=== PATIENT | male | born 1965 | race Caucasian/White ===

== ENCOUNTER 2025-06-11 18:14 | Emergency (ER) | payer OTHER, SELFPAY ==
--- NOTE | ~2025-06-11 | XR_ITS ---
EXAMINATION: XR chest 2V DATE: 06/11/2025 18:37 INDICATION: Chest pain TECHNIQUE: Frontal and lateral views of the chest were obtained. COMPARISON: None. FINDINGS: Heart size is normal. Lungs are clear of acute processes. IMPRESSION: 1. No acute findings. Reviewed, dictated and finalized at location [facility] [employer] IMPRESSION: 1. No acute findings.
--- NOTE | 2025-06-11 18:16 | ECG_ITS ---
Test Date: 2025-06-11 18:19:50 Measurements Intervals [place] Rate: 77 P: 44 IN: 147 QRS: 26 QRSD: 93 T: 33 QT: 369 QTc: 420 Interpretive Statements SINUS RHYTHM No previous ECG available for comparison Electronically Signed On 06-11-2025 21:42:43 [employer]OOKKEEPING MACHINE OPERATOR by Bipin Carbajal D.O
[2025-06-11 18:22] VITALS: BP 130/71; PULSE 79; RESP 17; TEMP 36.5; O2SAT 99
[2025-06-11 18:31] LABS: Hematocrit 39.4 % (42.0-52.0); Hemoglobin 12.4 g/dL (14.0-18.0); Immature Granulocyte Percent A 0.3 % (0-0.5); Lymphocytes Absolute Auto 1.57 K/mm3 (0.9-3.2); Mean Corpuscular HGB Conc 31.5 g/dl (32-36); Mean Corpuscular Hemoglobin 27.9 pg (26-34); Mean Corpuscular Volume 88.5 fl (80-100); Nucleated Red Blood Cells Absolute Auto 0.000 K/mm3 (0.0-0.012); Nucleated Red Blood Cells Perc 0.0 % (0.0-0.2); Platelet Count Result 252 k/mm3 (150-375); Red Blood Count 4.45 M/mm3 (4.6-6.20); White Blood Count 6.6 K/mm3 (4.5-10.0)
[2025-06-11 18:42] LABS: Alanine Aminotransferase 34 U/L (6-50); Albumin Level 4.6 g/dL (3.5-5.1); Alkaline Phosphatase 86 U/L (38-126); Anion Gap 8 mmol/L (4-12); Aspartate Amino Transferase 40 U/L (17-59); Bilirubin,Total 0.6 mg/dL (0.2-1.3); Blood Urea Nitrogen 11 mg/dL (9-20); Calcium 8.7 mg/dL (8.4-10.2); Carbon Dioxide 26 mmol/L (22-30); Chloride 101 mmol/L (98-107); Estimated CRCL calculation 78 ml/min; Estimated Glomerular Filt Rate > 60; Glucose 151 mg/dL (65-110); Lipase 123 U/L (23-300); Potassium 4.0 mmol/L (3.4-5.0); Sodium 135 mmol/L (137-145); Total Protein 8.2 g/dL (6.3-8.2)
[2025-06-11 18:45] LABS: INR 1.0; Prothrombin Time 13.1 Seconds (11.1-14.7)
[2025-06-11 18:46] LABS: Partial Thromboplastin Time 41.7 Seconds (22.3-36.8)
[2025-06-11 18:54] LABS: Troponin I < 0.012 ng/mL (0.000-0.034)
--- NOTE | 2025-06-11 21:37 | ECG_ITS ---
Test Date: 2025-06-11 21:41:23 Measurements Intervals [place] Rate: 75 P: 35 SD: 155 QRS: 27 QRSD: 78 T: 30 QT: 384 QTc: 430 Interpretive Statements SINUS RHYTHM Compared to ECG 06/11/2025 18:19:50 No significant changes Electronically Signed On 06-11-2025 21:44:11 FAT PRESSROOM WORKER by Bipin Carbajal D.O
[2025-06-11 22:08] LABS: Troponin I < 0.012 ng/mL (0.000-0.034)
--- NOTE | 2025-06-11 22:24 | ED.CHESTPAIN ---
HPI - Chest Pain General Chief Complaint: Chest Pain Stated Complaint: CP Time Seen by Provider: 06/11/25 21:45 History of Present Illness HPI narrative: Patient is a 59-year-old male who presents to the ER with chest pain that started approximately 1 week ago. He reports he recently changed medications to treat his autoimmune disorders. Patient reports he believes his pain is related to these new medication changes. He reports the pain is intermittent and increases when he pushes on his pectoral muscle or with certain movements. Patient denies any shortness of breath, recent fevers, palpitations or urinary symptoms. Related Data Allergies Allergy/AdvReac Type Severity Reaction Status Date / Time No Known Allergies Allergy Verified 06/11/25 18:27 Review of Systems Review of Systems: All systems reviewed & are unremarkable except as noted in HPI and below Exam Narrative: GENERAL: Well appearing, well-nourished, non-toxic, in no acute distress. HEAD: Normocephalic, atraumatic. NECK: Supple. No adenopathy, no masses. RESPIRATORY: Airway patent, respirations nonlabored. Clear to auscultation bilaterally, no rales, rhonchi, wheezing. CARDIOVASCULAR: Regular rate and rhythm without murmurs, rubs, or gallops. Peripheral pulses 2+ and equal bilaterally. Pain is reproducible with palpation to left pectoralis chest muscle ABDOMINAL: Soft, nontender, nondistended, no hepatosplenomegaly. Normoactive BS. MUSCULOSKELETAL: Moves all extremities. Strength/ROM intact without gross deformities. SKIN: Warm, dry, normal color. No rashes. NEURO: A&O X3. Speech clear. Cranial nerves II-XII intact. No ataxic movements. PSYCHIATRIC: Appropriate mood and affect. Normal interaction. Course Vital Signs Vital signs: Vital Signs Temperature 36.5 C 06/11/25 18:22 Pulse Rate 79 06/11/25 18:22 Respiratory Rate 17 06/11/25 18:22 Blood Pressure 130/71 06/11/25 18:22 Pulse Oximetry 99 06/11/25 18:22 Oxygen Delivery Room Air 06/11/25 18:22 Temperature 36.5 C 06/11/25 18:22 Pulse Rate 79 06/11/25 18:22 Respiratory Rate 17 06/11/25 18:22 Blood Pressure 130/71 06/11/25 18:22 Pulse Oximetry 99 06/11/25 18:22 Oxygen Delivery Room Air 06/11/25 18:22 MDM - Chest Pain MDM Narrative Medical decision making narrative: Patient is a 59-year-old male who presents to the ER with chest pain that started approximately 1 week ago. He reports he recently changed medications to treat his autoimmune disorders. Patient reports he believes his pain is related to these new medication changes. He reports the pain is intermittent and increases when he pushes on his pectoral muscle or with certain movements. Patient denies any shortness of breath, recent fevers, palpitations or urinary symptoms. Labs Ordered: CBC, CMP, PTT, INR, troponin, lipase Imaging Ordered: Chest x-ray Medications Ordered: Zanaflex 4 mg p.o., Toradol 15 mg IV Results: Patient's chest x-ray indicates No acute findings. Diagnosis: Musculoskeletal strain Risks: HEART score: low risk HEART Score for Major Cardiac Events from [employer] on 06/11/2025 All calculations should be rechecked by clinician prior to use RESULT SUMMARY: 3 points Low Score (0-3 points) Risk of MACE of 0.9-1.7%. INPUTS: History ?> 1 = Moderately suspicious EKG ?> 0 = Normal Age ?> 1 = 45-64 Risk factors ?> 1 = 1-2 risk factors Initial troponin ?> 0 = <Normal limit Patient Education/Shared MDM: Results of lab work and imaging shared with patient. He endorses improvement of symptoms following medication administration. Patient strongly advised to follow-up with his PCP as soon as possible for further evaluation. He will be discharged home with a prescription for muscle relaxants. Patient can take Tylenol and/or ibuprofen for pain control. Strict return precautions provided. Patient verbalized understanding and is in agreement with plan. Vital signs stable at time of discharge. All questions answered. Lab Data Attestation: I reviewed the patient's lab results. 06/11/25 18:06/11/25 18:25 Labs: Lab Results 06/11/25 06/11/25 Range/Units 18: 21:40 WBC 6.6 (4.5-10.0) K/mm3 RBC 4.45 L (4.6-6.20) M/mm3 Hgb 12.4 L (14.0-18.0) g/dL Hct 39.4 L (42.0-52.0) % MCV 88.5 (80-100) fl MCH 27.9 (26-34) pg MCHC 31.5 L (32-36) g/dl RDW 15.3 H (11.5-14.5) % Plt Count 252 (150-375) k/mm3 MPV 9.5 (7.4-10.4) fl Immature Gran % (Auto) 0.3 (0-0.5) % Neut % (Auto) 63.3 (45.5-73.1) % Lymph % (Auto) 23.8 (18.3-44.2) % [place] % (Auto) 11.4 H (2.6-8.5) % Eos % (Auto) 0.9 (0-4.4) % Baso % (Auto) 0.3 (0.2-1.2) % Lymph # (Auto) 1.57 (0.9-3.2) K/mm3 [place] # (Auto) 0.8 H (0.1-0.6) K/mm3 Eos # (Auto) 0.1 (0-0.3) K/mm3 Baso # (Auto) 0.0 (0.0-0.1) K/mm3 Abs Immat Gran (auto) 0.02 (0.00-0.031) K/mm3 Absolute Neuts (auto) 4.2 (1.3-6.7) K/mm3 Absolute Nucleated RBC 0.000 (0.0-0.012) K/mm3 Nucleated RBC % 0.0 (0.0-0.2) % PT 13.1 (11.1-14.7) Seconds INR 1.0 APTT 41.7 H (22.3-36.8) Seconds Sodium 135 L (137-145) mmol/L Potassium 4.0 (3.4-5.0) mmol/L Chloride 101 (98-107) mmol/L Carbon Dioxide 26 (22-30) mmol/L Anion Gap 8 (4-12) mmol/L BUN 11 (9-20) mg/dL Creatinine 0.96 (0.7-1.3) mg/dL Estim Creat Clear Calc 78 ml/min Estimated GFR > 60 (59 - ) Glucose 151 H (65-110) mg/dL Calcium 8.7 (8.4-10.2) mg/dL Total Bilirubin 0.6 (0.2-1.3) mg/dL AST 40 (17-59) U/L ALT 34 (6-50) U/L Alkaline Phosphatase 86 (38-126) U/L Troponin I < 0.012 < 0.012 (0.000-0.034) ng/mL Total Protein 8.2 (6.3-8.2) g/dL Albumin 4.6 (3.5-5.1) g/dL Lipase 123 (23-300) U/L Imaging Data Attestation: I personally reviewed and interpreted this imaging study as follows: Radiologist's impression: Impressions Chest X-Ray 06/11/25 18:38 IMPRESSION: 1. No acute findings. Discharge Plan Discharge Clinical Impression: Atypical chest pain, Pectoralis muscle strain Patient Disposition: Home Condition: Stable Instructions: Antibiotic Form, Musculoskeletal Pain (ED) Additional Instructions: Please return to the ER with any worsening symptoms. Follow-up with primary care provider as soon as possible for further evaluation. Take all medications as prescribed, including regularly scheduled medications. You may take Tylenol and/or ibuprofen for pain control, along with muscle relaxants. Patient Language: Frisian Prescriptions: New tizanidine 4 mg capsule 4 mg PO Q8H PRN (Reason: muscle spasticity) Qty: 30 0RF Follow-up/Referrals: UNKNOWN,DOCTOR [Non-Staff] Time of Disposition: 23:16
[2025-06-11] MEDS: KETOROLAC 15 MG/ML VIAL (*BKC) IV PUSH (22:52)
[2025-06-11] MEDS: TIZANIDINE HCL 4 MG TABLET PO (22:52)
[2025-06-11 23:19] VITALS: BP 126/66; PULSE 71; RESP 18; O2SAT 96
--- OUTSIDE RECORDS SUMMARY | 2025-06-12 01:11 | XMS_ITS | Clinical Summary ---
Author Organization [facility] Address [address] [place] [address] Care Team Providers Care Lapel Baster Name Role Phone Pennie High MD Primary Care Provider [phone] Allergies Active Allergy Reactions Criticality Noted Date Comments Shellfish Containing Products Other (See comments) Low 11/23/2022 Throat tingling Medications dicyclomine (BENTYL) 10 mg capsuleIndicati ons:Crohn's Take 1 capsule (10 mg total) by mouth 3 (three) times a day Active ARIPiprazole (ABILIFY) 20 mg tabletIndicatio ns:mood Take 1 tablet (20 mg total) by mouth every morning Active Accu-Chek Guide test strips strip 3 Active Accu-Chek Guide Me Glucose Mtr misc 3 Active folic acid (FOLVITE) 1 mg tabletIndicatio ns:supplement Take 1 tablet (1 mg total) by mouth every morning 3 Active calcium carbonate-vitam in D3 1,250mg (500mg elemental) - 5 mcg (200 units) per tabletIndicatio ns:Prevention of Vitamin D Deficiency Take 1 tablet by mouth every morning 3 Active CHOLECALCIFEROL , VITAMIN D3, ORALIndications :Vitamin D Deficiency Take 1 tablet by mouth every morning 3 Active empagliflozin-m etformin 12.5-1,000 mg tablet, IR & ER, biphasic 24hrIndications :type 2 diabetes mellitus Take 2 tablets by mouth every morning 3 Active escitalopram (LEXAPRO) 20 mg tabletIndicatio ns:Anxiety with Depression Take 1 tablet (20 mg total) by mouth every morning 3 Active Accu-Chek Softclix Lancets lancets 3 Active losartan (COZAAR) 50 mg tabletIndicatio ns:hypertension Take 0.5 tablets (25 mg total) by mouth every morning [address] (PROTONIX) 40 mg EC tabletIndicatio ns:Treatment of Non-Bleeding Gastric Disorder Take 1 tablet (40 mg total) by mouth every morning 3 Active sertraline (ZOLOFT) 50 mg tabletIndicatio ns:Anxiety with Depression Take 0.5 tablets (25 mg total) by mouth every morning 6 Active sulfaSALAzine (AZULFIDINE) 500 mg tabletIndicatio ns:Crohn's Disease Take 1 tablet (500 mg total) by mouth 3 (three) times a day 3 Active tadalafiL (CIALIS) 20 mg tablet Take 1 tablet (20 mg total) by mouth as needed for erectile dysfunction 3 Active Synthroid 150 mcg tabletIndicatio ns:hypothyroidi sm Take 1 tablet (150 mcg total) by mouth every morning 3 Active white petrolatum-mine ral oiL ointment Apply 1 Application to left eye nightly 3.5 g 11 4 Active methotrexate 2.5 mg tablet Take 6 tablets (15 mg total) by mouth 4 Active BD Ultra-Fine Mini Pen Needle 31 gauge x 3/16 needle 4 Active pioglitazone (ACTOS) 30 mg tablet 4 Active QUEtiapine (SEROquel) 100 mg tablet Take 0.5 tablets (50 mg total) by mouth 4 Active traZODone (DESYREL) 100 mg tablet Take 2 tablets (200 mg total) by mouth 4 Active atorvastatin (LIPITOR) 80 mg tablet 4 Active glipiZIDE (GLUCOTROL) 10 mg tablet 4 Active predniSONE (DELTASONE) 5 mg tabletIndicatio ns:Panuveitis of right eye Take 2 tablets (10 mg) by mouth daily 180 tablet 1 4 Active sildenafiL (VIAGRA) 100 mg tablet Take 1 tablet (100 mg total) by mouth 4 Active tofacitinib (XELJANZ) 10 mg tablet Take 1 tablet (10 mg total) by mouth 5 Active insulin glargine 100 unit/mL (3 mL) pen for injection Inject under the skin 4 Active difluprednate (DUREZOL) 0.05 % dropsIndication s:Chronic anterior uveitis of left eye Administer 1 drop into the right eye 6 (six) times a day Use daily in the left eye 5 Active Active Problems Problem Noted Date Diagnosed Date Irritable bowel syndrome, unspecified 08/09/2024 Keratopathy 06/04/2024 Assessment & Plan (08/09/2024 11:56 AM CANDY MAKER HELPER): His tearing is due to the ocular surface. Recommended ointment qHS. Assessment & Plan (06/04/2024 9:42 PM CANDY MAKER HELPER): His tearing is due to the ocular surface. Recommended ointment qHS. Chronic anterior uveitis of left eye 09/12/2023 Overview (09/12/2023): See overview for panuveitis of right eye Assessment & Plan (04/21/2025 9:59 AM CDT): He has no active inflammation today. See plan in panuveitis of right eye section Assessment & Plan (02/28/2025 10:30 AM CDT): He has no active inflammation today. See plan in panuveitis of right eye section Assessment & Plan (01/02/2025 1:39 PM CDT): He has no active inflammation today. See plan in panuveitis of right eye section Assessment & Plan (11/18/2024 7:51 AM CDT): He has mild active inflammation today. See plan in panuveitis of right eye section Assessment & Plan (08/12/2024 8:38 PM CANDY MAKER HELPER): He has no active inflammation OS today. See section on panuveitis OD for treatment plan. Assessment & Plan (06/04/2024 9:40 PM CANDY MAKER HELPER): He has no active inflammation OS today. Continue difluprednate BID OU, can consider tapering OS on follow up. Assessment & Plan (03/08/2024 7:46 AM CDT): He has no active inflammation OS today. We are tapering prednisolone after cataract surgery. Assessment & Plan (11/24/2023 3:23 PM CDT): He has no active inflammation OS today. Assessment & Plan (09/12/2023 9:40 PM CANDY MAKER HELPER): He has no active inflammation OS today. Allergic rhinitis 06/12/2023 Ankylosing spondylitis of multiple sites in spin e 06/12/2023 Barretts esophagus 06/12/2023 Enteropathic arthritis 06/12/2023 Fungal infection of nail 06/12/2023 Headache 06/12/2023 Hyperlipidemia 06/12/2023 Hypertension 06/12/2023 Hypothyroidism 06/12/2023 Impaired fasting glucose 06/12/2023 Crohn's disease, unspecified, without complicati ons 06/12/2023 Ulcerative colitis, unspecified, without complic ations 06/12/2023 Migraine, unspecified, not i ntractable, without status migrainosus 06/12/2023 Shingles 06/12/2023 Overview (06/12/2023): Aug 30, 2022 Entered By: PENNIE HIGH Comment: left t5 derm Zoster without complications 06/12/2023 Shoulder pain 06/12/2023 Overview (06/12/2023): Mar 20, 2019 Entered By: PENNIE HIGH Comment: right shoulder Tinnitus 06/12/2023 Vitamin D deficiency 06/12/2023 Left sided ulcerative colitis 06/12/2023 Cystoid macular edema of right eye 05/02/2023 Overview (05/02/2023): Noted 05/01/23 Assessment & Plan (04/21/2025 9:59 AM CDT): He has no macular edema today, difluprednate is likely adequate as he has not been on bromfenac. Continue to follow with OCT. Assessment & Plan (02/28/2025 10:29 AM CDT): His cyst in the right eye is resolved. Continue bromfenac twice a day in the right eye, we will taper this next visit if his inflammation is controlled. Increasing difluprednate may also help. Assessment & Plan (01/02/2025 1:38 PM CDT): He has a single cyst in the right eye but is seeing 20/20 today. Continue bromfenac twice a day in the right eye. Increasing difluprednate may also help. Assessment & Plan (11/19/2024 4:07 PM CDT): He has resolution of his CME with bromfenac. Decrease this to twice a day. Assessment & Plan (08/12/2024 8:37 PM CANDY MAKER HELPER): He has stable CME OD today, possibly related to his mild inflammation vs cataract surgery. Given stability will opt for treatment, start bromfenac QID OD. Assessment & Plan (06/04/2024 9:35 PM CANDY MAKER HELPER): He has recurrent CME OD today, possibly related to his mild inflammation vs cataract surgery. Will follow trajectory as I am hopeful his switch in IMT will be adequate to resolve inflammation. Will consider topical NSAIDs if not. Follow with OCT. Assessment & Plan (11/24/2023 3:24 PM CDT): Will repeat OCT after CEIOL Assessment & Plan (10/17/2023 9:41 PM CDT): He has no CME today, though OCT view poor. Assessment & Plan (09/12/2023 9:38 PM CANDY MAKER HELPER): OCT quality has decreased, he might have some mild CME but I am not convinced. Oral prednisone should help. Assessment & Plan (05/02/2023 8:43 AM CDT): I expect control of inflammation and difluprednate will be adequate to resolve this. Will follow with OCT. Panuveitis of right eye 01/17/2023 Overview (06/04/2024): Panuveitis OD, anterior uveitis OS Complications: cataract Last active: 04/01/24 OS, 06/03/2024 OD Systemic associations: Chron's disease Care Team: Other notes: Underlying Crohn's disease with arthritis and uveitis On Remicade q8w at the visual acuity (VA) and AZA 150mg daily Active uveitis despite Remicade and azathioprine. Relay Dispatcher is Dr. vizcarra [phone] Kandi Zapata Assessment & Plan (04/21/2025 10:00 AM CDT): He has active inflamamtion OD today. Tofacitinib has had enough time to become fully efficacious and is not adequate for him. Increase difluprednate to 6 times a day in the right eye. Continue to once a day in the left eye. Continue prednisone 10 mg daily, tofacitinib 5 mg b.i.d., methotrexate 15 mg weekly oral, and folic acid 1 mg daily We will discuss IMT with rheumatology, potentially increasing methotrexate. Assessment & Plan (02/28/2025 10:29 AM CDT): He has active inflammation in the right eye today but he is quiet left eye. Use difluprednate in the right eye 6 times a day for 1 week, then 5 times a day for 1 week, then 4 times a day and continue 4 times a day. Continue prednisone 10 mg, we will taper this if he has quiet next visit. Continue tofacitinib 5 mg b.i.d. per rheumatology Assessment & Plan (01/02/2025 1:36 PM CDT): He has active inflammation in the right eye today but he is quiet left eye. Increase difluprednate to 3 times a day in the right eye, decrease to once a day in the left eye. Continue prednisone 10 mg, we will taper this if he has quiet next visit. Continue tofacitinib 10 mg b.i.d. per rheumatology Assessment & Plan (11/19/2024 4:06 PM CDT): He has active inflammation both eyes today. Increase difluprednate to every 2 hours in both eyes for 1 week, then 6 times a day for 1 week, then 4 times a day for 1 week, then 3 times a day for 1 week, then continue BID. Increase prednisone to 10 mg. We will talk with Dr. Vizcarra about adjusting IMT as this current combination is a inadequate. He would prefer to increase his methotrexate and avoid changing the infliximab given that it has controlled his ulcerative colitis well. There is a reasonable next step, but I am not hopeful that will be adequate. Other alternatives would be switching his infliximab to a Nathalie, or rituximab. Assessment & Plan (08/12/2024 8:17 PM CANDY MAKER HELPER): He has no active inflammation today with switch to methotrexate, IMT managed by Dr. Byrne. Decrease prednisone to 7.5 mg daily. Continue infliximab 10 mg/kg q4 weeks, methotrexate 15 mg weekly, and folic acid 1 mg daily. Could consider rituximab or Nathalie if needing to switch IMT in the future. Decrease difluprednate to once a day in both eyes. Assessment & Plan (06/04/2024 9:39 PM CANDY MAKER HELPER): He has mild inflammation OD but is adjusting IMT with Dr. Byrne. Continue Prednisone 10 mg daily and continue to downtitrate azathorpine and uptitrate methotrexate. Could consider rituximab or Nathalie if needing to switch IMT in the future. Continue difluprednate twice a day in the Both eyes. Assessment & Plan (04/01/2024 8:59 AM CDT): He has active inflammation both eyes today. Stop prednisolone in the left eye, increase difluprednate to every 2 hours in both eyes for 1 week, then 6 times a day for 1 week, then 4 times a day for 1 week, then continue 3 times a day. We will talk with Dr. Vizcarra about adjusting IMT as azathioprine and infliximab does not seem to be inadequate combination for his eyes Assessment & Plan (03/08/2024 7:46 AM CDT): He has mild inflammation anteriorly in the right eye today. Increase difluprednate to 3 times a day in the right eye, he recently increased his azathioprine 200 mg daily. Assessment & Plan (11/24/2023 3:23 PM CDT): He has no active inflammation today. Continue difluprednate BID OU, prednisone taper to 10 mg daily, infliiximab 10mg/kg q4 weeks, and azathioprine 150 mg daily. Will hold prednisone at 10 mg and difluprednate at BID until after cataract surgery. Assessment & Plan (10/17/2023 9:43 PM CDT): He has no active inflammation today. Continue difluprednate BID OU, prednisone taper to 10 mg daily, infliiximab 10mg/kg q4 weeks, and azathioprine 150 mg daily. Will hold prednisone at 10 mg and difluprednate at BID until after cataract surgery. Assessment & Plan (09/12/2023 9:39 PM CANDY MAKER HELPER): He has persistent inflammation OD today in the context of being off drops. FA shows posterior involvement. Discussed that will need oral prednisone due to posterior inflammation and will likely need to increase IMT. Will discuss increasing infliximab to every [address] Byrne. Start prednisone 60 mg daily for 2 weeks, then then 50 mg for 1 week, then 40 mg for 1 week, then 30 mg for 1 week, then 25 mg for 1 week, then 20 mg fo r1 week, then 15 mg for 1 week, then 12.5 mg for 1 week, then 10 mg for 1 week, then continue 7.5 mg daily. He is diabetic and on oral medications. He is aware he needs to see his PCP within 1 week of starting prednisone, check his BS more frequently, and may need to go on insulin for the short run. Restart difluprendate twice a day in the right eye. Assessment & Plan (05/02/2023 8:41 AM CDT): He has persistent inflammation OD today. He might be able to get by with just drops but I think it is likely he will need IMT in the near future. For now increase difluprednate to every 2 hours while awake for 1 week, then six times a day for 1 week, then four times a day for 1 week, then three times a day for 1 week, then continue two times a day. If he is active on follow up will need to discuss IMT. Assessment & Plan (03/03/2023 10:43 AM CDT): Cont Durezol BID right eye (OD) Cont A-bharat BID both eyes (OU) (written instructions printed for patient) Assessment & Plan (01/17/2023 9:34 AM CDT): Uveitis is quiet today on Durezol BID right eye (OD) and pred forte (PF) daily left eye (OS) Intraocular pressure (IOP) is elevated He has Remicade infusion 01/30, at which time they will check his serum level and titrate the dose, probably will be effective around March 2023. PLAN Continue Durezol BID right eye (OD) for 2 weeks then daily until seen, Continue pred forte (PF) daily OS will maintain this until new Remicade regimen is initiated Bilateral ocular hypertension 01/17/2023 Overview (11/18/2024): Diagnosis:OHTN OU Tmax: Gonio: Heavy pigment, some PAS but open OU 09/11/2023 Pachy: 587/593 09/11/2023 Last Watkins visual field (HVF): 05/2024 Last RNFL: 67/80 08/09/2024 Assessment & Plan (04/21/2025 9:59 AM CDT): IOP is acceptable off of IOP lowering medications. He is still pachymetry with a T-max of 24, I would be okay with any eye pressure less than 25 OU at this point. Due for visual field in May 2025 in RNFL in July of 2025 Assessment & Plan (02/28/2025 10:29 AM CDT): IOP is acceptable off of IOP lowering medications. We will watch closely as we continue difluprednate, but hope to wean this and oral prednisolone if he does well with tofacitinib Due for visual field in May 2025 in RNFL in July of 2025 Assessment & Plan (01/02/2025 1:37 PM CDT): IOP is acceptable off of IOP lowering medications. We will watch closely as we continue difluprednate, but hope to wean this and oral prednisolone if he does well with tofacitinib Due for visual field in May 2025 in RNFL in July of 2025 Assessment & Plan (11/18/2024 7:51 AM CDT): IOP is fantastic off of IOP lowering medications. He probably has some very mild steroid response given the it decrease when we went down on the difluprednate, but he will need more topical steroids for the short run. I hope that in the long run he will not need any additional therapy for his IOP. Due for visual field in May 2025 in RNFL in July of 2025 Assessment & Plan (08/12/2024 8:38 PM CANDY MAKER HELPER): IOP acceptable for now, RNFL stable OS and baseline thinned OD. Need to obtain baseline HVF in the future. Assessment & Plan (06/04/2024 9:40 PM CANDY MAKER HELPER): IOP acceptable for now, will repeat RNFL next visit and HVF thereafter. Assessment & Plan (04/01/2024 8:58 AM CDT): IOP is slightly above normal but this is probably okay given his thick corneas. He has active inflammation so we are going to treat this 1st and see how his pressure responds. Obtain visual field next visit. Assessment & Plan (03/08/2024 7:46 AM CDT): IOP is great today. Stop dorzolamide/timolol. Will see how pressure responds off treatment, now that cataract is removed plan to repeat testing in the next several visits Assessment & Plan (11/24/2023 3:23 PM CDT): IOP elevated OD today; we will be tapering steroids after cataract surgery next month, this pressure is acceptable for now. Repeat testing after cataract surgery Assessment & Plan (10/17/2023 9:39 PM CDT): Will repeat testing after cataract surgery. Assessment & Plan (09/12/2023 9:37 PM CANDY MAKER HELPER): IOP acceptable for now, will need HVF and repeat RNFL after CEIOL. Assessment & Plan (05/01/2023 2:11 PM CDT): IOP acceptable for now, will need baseline testing in the future. Assessment & Plan (01/17/2023 9:38 AM CDT): Steroid-related likely PLAN Brimonidine BID OU Pseudophakia of both eyes 01/17/2023 Overview (02/24/2024): OD: ZCB00 +11.0 (Charleen, 12/29/23) OS: ZCB00 +14.5 (Charleen, 02/23/24) Assessment & Plan (04/01/2024 8:59 AM CDT): His vision is fantastic today but he does have some postop inflammation. See section on pain uveitis for treatment. Assessment & Plan (03/08/2024 7:47 AM CDT): Doing well after cataract surgery with mild corneal edema in the left eye today. I expect this will resolve. No lens fragments seen on gonioscopy. Taper prednisolone to once a day for 1 week then stop. Continue ketorolac for another week and a half. Assessment & Plan (01/08/2024 8:59 AM CDT): Doing well today, but with a bit more inflammation than expected. Continue to taper prednisolone Q2h for 1 week, then six times a day for 1 week, then continue four times a day. Restart ketorolac QID, stop ofloxacin. Continue infliximab and azatioprine Assessment & Plan (11/24/2023 3:23 PM CDT): He is scheduled for CEIOL in December (OD) and February (OS). No inflammation today. Assessment & Plan (10/17/2023 9:41 PM CDT): His cataract has progressed OD and is likely visually significant. I would like to see him one more before his surgery to ensure he remains quiet, but will get IOL master today - R/B/A of surgery discussed in detail with patient including but not limited to infection, bleeding, persistent inflammation, pain, diplopia, ptosis, need for further surgeries, need for spectacle correction after surgery, possible loss of vision, possible loss of the eye, and risks of anesthesia. - Additional risks discussed included need for glasses - The patient understands these risks and wishes to proceed. - Target refraction was discussed with the patient. We discussed near, distance, and monovision; we also discussed multifocal and toric lenses. Procedure: CE/IOL Eye: Both, right first OR time: 45 minutes Anesthesia: MAC Refractive aim: -0.25 Lens model: ZCB00 Additional details discussed with patient Able to lie flat: Yes Anticipated additional procedures: trypan blue Need for perioperative anti-inflammatory therapy: prednisone 60 mg and difluprednate every 2 hours PMHx and need for pre-operative physical: Crohns, well controlled Assessment & Plan (09/12/2023 9:37 PM CANDY MAKER HELPER): He has a visually significant catract in the right eye, but will need inflammation controlled prior to surgery. Earliest would be December if he remains controlled. Assessment & Plan (05/01/2023 2:12 PM CDT): He has a visually significant catract in the right eye, but will need inflammation controlled prior to surgery. Earliest would be August if he remains controlled. Assessment & Plan (01/17/2023 9:40 AM CDT): Recommend waiting for surgery until uveitis is in remission, pretreating with -Durezol QID starting 5 days prior to phaco and -prednisone 60/40/20/10 for 5 days each starting 3 days prior to phaco Resolved Problems Problem Noted Date Diagnosed Date Resolved Date Age-related nuclear cataract of right eye 02/23/2024 02/24/2024 Age-related nuclear cataract, right eye 06/12/2023 09/12/2023 Chronic iridocyclitis, bilateral 06/12/2023 09/12/2023 Chronic iridocyclitis, right eye 06/12/2023 09/12/2023 Primary iridocyclitis, left eye 06/12/2023 09/12/2023 Uveitis 06/12/2023 09/12/2023 Iritis 06/12/2023 09/12/2023 Encounters Date Type Department Care Team Description 04/21/2025 8:45 AM CDT Office Visit [facility] Medicine Ophthalmology [address] [place] [address] Pennie Villaseñor MD Panuveitis of right eye (Primary Dx); Chronic anterior uveitis of left eye; Cystoid macular edema of right eye; Bilateral ocular hypertension from Last 3 Months Surgical History Surgery Date Site/Laterality Comments VASECTOMY COLONOSCOPY ESOPHAGOGASTRODUODENOSCOPY CATARACT EXTRACTION 12/29/2023 Right Medical History Medical History Date Comments Diabetes mellitus Hypertension RA (rheumatoid arthritis) Cataract Thyroid disease Ulcerative colitis [place] esophagus Vasculitis Uveitis CME (cystoid macular edema), right Ocular hypertension Family History Medical History Relation Name Comments Anesthesia problems Neg Hx Social History Tobacco Use Types Packs/Day Years Used Date Smoking Tobacco: Never Smokeless Tobacco: Never Tobacco Cessation:Counseling Given: Not Answered AUDIT-C Answer Date Recorded Q1: How often do you have a drink containing alc ohol? Monthly or less 02/23/2024 Q2: How many drinks containi ng alcohol do you have on a typical day when you are drinking? 1 or 2 02/23/2024 Q3: How often do you have si x or more drinks on one occasion? Never 02/23/2024 Personal Safety Answer Date Recorded Have you ever been in or are you currently in a harmful physical or emotional relationship or is someone making you feel afraid or unsafe? Denies 02/23/2024 Sex and Gender Information Value Date Recorded Sex Assigned at Not on file Legal Sex Male 1:16 PM CDT Gender Identity Not on file Sexual Orientation Not on file Last Filed Vital Signs Vital Sign Reading Time Taken Comments Blood Pressure 121/74 02/23/2024 1:40 PM CDT Pulse 77 02/23/2024 1:50 PM CDT Temperature 36.5 C (97.7 F) 02/23/2024 1:35 PM CDT Respiratory Rate 21 02/23/2024 1:50 PM CDT Oxygen Saturation 95% 02/23/2024 1:50 PM CDT Inhaled Oxygen Concentration - - Weight 79.8 kg (176 lb) 02/23/2024 10:30 AM CDT Height 182.9 cm (6') 02/23/2024 10:30 AM CDT Body Mass Index 23.87 02/23/2024 10:30 AM CDT Plan of Treatment Health Maintenance Due Date Last Done Comments Colon Cancer Screening-Colonoscopy 1965 Depression Screening 1963 Hepatitis C Screening 1963 Prostate Cancer Screening-PSA 1963 DTaP/Tdap/Td Vaccine (1 - Tdap) 1974 Hepatitis B Screening 1981 Regular Well Visit/Exam 18-64 1981 Influenza Vaccine (#1) 2025 , 04/26/2018, 04/28/2017, Additional history exists Pneumococcal vaccine <65 (4 of 4 - PCV20 or PCV21) 07/05/2026 07/05/2021, 03/20/2019, 12/08/2015 Zoster Vaccine Completed 12/05/2024, 09/12/2024 Medical Devices Implanted Type Area Plasterer Spot Device Identifier Shelf Expiration Date Model / Serial / Lot [employer] Zcb00 11.0 Tecnis Protec 6mm 13mm 1 Piece Anterior Aspheric Square Edge Uv - [id number] - [id number] Implanted:Qty: 1 on 12/29/2023 by Pennie Villaseñor MD at [facility] Lens Right: Eye [employer] [id number] 11/12/2024 [id number] / [id number] / [employer] Zcb00 14.5 Tecnis Protec 6mm 13mm 1 Piece Anterior Aspheric Square Edge Uv - [id number] - [id number] Implanted:Qty: 1 on 02/23/2024 by Pennie Villaseñor MD at [facility] Lens Left: Eye [employer] [id number] 06/06/2027 [id number] / [id number] / 0 Procedures Procedure Name Priority Date/Time Associated Diagnosis Comments OCT, RETINA - OU - BOTH EYES Routine 04/21/2025 10:01 AM CDT Cystoid macular edema of right eye from Last 3 Months Results * OCT, Retina - OU - Both Eyes (04/21/2025 10:01 AM CDT) Anatomical Region Laterality Modality Head Optical Coherenc e Tomography Narrative 04/21/2025 10:01 AM CDT OD: Myopic, no recurrent CME OS: Mild ERM, thin choroid, stable from prior us Pennie Villaseñor MD OPHTH [id number] Final Res ult from Last 3 Months [place] [facility] [place] [facility] Care Teams Lapel Baster Relationship Specialty Start Date End Date Pennie High MD [address] [facility] [address] [place] [address] PCP - General Internal Medicine 10/06/22
--- OUTSIDE RECORDS SUMMARY | 2025-06-12 01:11 | XMS_ITS ---
Author Organization Unknown ENCOUNTERS Encounter Performer Location Date Diagnosis Diagnosis Status Emergency [place] [id number] [place] [address] [id number] [place] Pre Admit [place] [id number] [place] [address] [id number] *Note: Encounters from your own facility or health system may be excluded. Allergies, Adverse Reactions, Alerts Allergen Type Severity Identification Date Medications Name Date Quantity Days Supplied GPI Number
== END 2025-06-11 23:26 | disposition home or self-care (01) ==
PROVIDERS: Emergency Medicine; Student in an Organized Health Care Education/Training Program; Emergency Provider Registered Nurse
DX: S29.011A Strain of muscle and tendon of front wall of thorax, initial encounter (principal); R07.89 Other chest pain; D89.89 Other specified disorders involving the immune mechanism, not elsewhere classified; X58.XXXA Exposure to other specified factors, initial encounter
CPT/HCPCS: 36415; 71046; 80053; 83690; 84484; 85025; 85610; 85730; 93005; 96374; 99284; A9270; J1885